=== PATIENT | male | born 1985 | race Caucasian/White ===

== ENCOUNTER 2017-01-12 15:27 | Emergency (ER) | payer SELFPAY ==
--- NOTE | 2017-01-12 15:51 | ED NURSING NOTES ---
Clinical Report - Nurses [facility] [address] [place] [address] 01/12/2017 15:29 Patient: ELIZABETH MITCHELL TRIAGE Triage time 15:37. Acuity: LEVEL 4. Chief Complaint: SKIN LESION and . right buttock abscess 2.5 weeks ago, got larger, pt popped it a couple days ago, was moving, so was busy, today it popped spontaneously and started draining a lot of serous fluid. Alert. --15:42 Dolly Ashton R.N. 15:42 01/12/17. BP: 123/75. HR: 102. RR: 18. O2 saturation: 100%. Temp: 98.7 F. Pain level now: 11/08. --15:44 Dolly Ashton R.N. Weight: 72.5 kg stated. Height/Length: 70 inches Per Patient. BMI: 22.9. --15:40 Dolly Ashton R.N. Medications None. --15:39 Dolly Ashton R.N. Allergies No Known Drug Allergy. --15:39 Dolly Ashton R.N. History Arrived by private vehicle. Historian: patient. Accompanied by father. Primary physician (none). ( Pt arrived at registration desk, bleeding from open wound onto floor, was called to bring pt back right away, brought to room in ED and father left to register pt.). It is described as painful. 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 PAST MEDICAL HX: Immunizations: status is unknown. SOCIAL HX: Heavy tobacco smoker (cigarette)- less than 1 pack per day. No alcohol use or drug use. The patient was not exposed to MRSA. FALL RISK ASSESSMENT: Fall risk assessment completed. No fall risk identified. FUNCTIONAL ASSESSMENT: Functional assessment: no impairments noted. LEARNING NEEDS ASSESSMENT: The learning needs assessment revealed no barriers. --15:42 Dolly Ashton R.N. PROBLEMS: Abscess. --15:39 Dolly Ashton R.N. ADDITIONAL SURGERIES: no known surgeries. Interventions ID band on patient. To room. --15:42 Dolly Ashton R.N. PHYSICAL ASSESSMENT 15:44 01/12/17. GENERAL / NEURO / PSYCH: Alert. Oriented X 4. RESPIRATORY: Respirations not labored. --15:44 Dolly Ashton R.N. NURSING PROGRESS NOTES 15:44 01/12/17. Patient identifiers checked. Call light placed in reach. Bed placed in lowest position. Patient ready for evaluation- chart flagged. --15:44 Dolly Ashton R.N. DISPOSITION / DISCHARGE Departure time: 1610. Condition at departure: improved. ( Vital signs deferred.). No learning barriers present. Discharge instructions provided and reviewed with the patient. Reviewed medication(s) information. Prescription(s) given to the patient. Reviewed wound care and skin care instructions. Reviewed referral to family practice for followup. Verbalized understanding. Written instructions provided. The patient was discharged home and accompanied by parent. He left the Emergency Department ambulatory and via private vehicle. --16:13 Dolly Ashton R.N. Locked/Released at 01/15/2017 9:50 by Dolly Ashton R.N.
--- NOTE | 2017-01-12 15:51 | ED CLINICAL REPORT ---
Clinical Report - Physicians/Mid Levels [facility] [address] [place] [address] 01/12/2017 15:29 Patient: ELIZABETH MITCHELL Time Seen: 15:41; initial patient contact, initial documentation, patient care assumed. Arrived- By private vehicle. Historian- patient. HISTORY OF PRESENT ILLNESS Chief Complaint: LESION. This started about 2 1/2 weeks ago and is still present but is better now. Not itchy, painful or burning. It has been located on the right buttocks. No cause has been identified. (opened it up today, and started draining alot today). Similar symptoms previously: Once, milder. ( had one prior on other buttock, went away with abx, would like abx again now). Recent medical care: Not recently seen/assessed. REVIEW OF SYSTEMS No fever. All systems otherwise negative, except as recorded above. PAST HISTORY See nurses notes. PROBLEMS: Abscess. --15:39 Dolly Ashton R.N. ADDITIONAL SURGERIES: no known surgeries. SOCIAL HISTORY Heavy tobacco smoker. No alcohol use or drug use. No recent travel. Is a local resident. FAMILY HISTORY Negative. ADDITIONAL NOTES The nursing notes have been reviewed with agreement regarding the chief complaint, HPI, ROS, PMH and patient medications and allergies. PHYSICAL EXAM Vital Signs: 01/12/2017 15:42 BP: 123/75. HR: 102. RR: 18. O2 saturation: 100%. Temp: 98.7 F. Pain level now: 2/10. Have been reviewed as abnormal and appear to be correct. Blood pressure normal. Tachycardic. Respiratory rate normal. Temperature normal. Oxygen saturation normal. Appearance: Alert. Oriented X3. No acute distress. Eyes: Pupils equal, round and reactive to light. Conjunctivae and eyelids normal. Neck: Neck supple. Respiratory: No respiratory distress. Skin: Skin warm and dry. Normal skin color. No rash. Normal skin turgor. Single medium abscess with drainage to right buttock (1cm size hole open and draining, clear fluid to blood, no pus seen). No fluctuance, pointing or cellulitis. Extremities: Normal external inspection. Extremities nontender. Neuro: Oriented X 3. No motor deficit. No sensory deficit. PROGRESS AND PROCEDURES Patient counseled in person regarding the patient's stable condition and diagnosis. Differential Diagnosis: Other possible considerations: abscess, acne, cellulitis, substance abuse, insect bite/sting. Above considerations are based on history and physical exam. Differential diagnosis was discussed with patient. Disposition: Discharged home in good and improved condition (15:51). Condition: good and stable. CLINICAL IMPRESSION Single deep abscess (R buttock). INSTRUCTIONS Protect wound and keep wound area clean. Soak in warm soapy water twice daily. Warnings: GENERAL WARNINGS: Return or contact your physician immediately if your condition worsens or changes unexpectedly, if not improving as expected, or if other problems arise. Specifically return if problem worsens. Prescription Medications: Bactrim DS 800 mg / 160 mg: take 1 tablet orally every 12 hours for 10 days. No refill. Follow-up: Follow up with your doctor in about two days for wound check. Call for an appointment. Summary of care provided to patient. Understanding of the discharge instructions verbalized by patient. (Electronically signed by Ileana Brink A.R.N.P. 01/12/2017 19:44) Addenda for ELIZABETH MITCHELL VisitID: [id number] Date: 01/12/2017 01/15/2017 9:50 Dressing placed on wound prior to discharge, applied 4x4's and secured with tape. (Electronically signed by Dolly Ashton R.N. 01/15/2017 9:50)
--- NOTE | 2017-01-12 15:51 | ED NURSING NOTES ---
Clinical Report - Nurses [facility] [address] [place] [address] 01/12/2017 15:29 Patient: ELIZABETH MITCHELL TRIAGE Triage time 15:37. Acuity: LEVEL 4. Chief Complaint: SKIN LESION and . right buttock abscess 2.5 weeks ago, got larger, pt popped it a couple days ago, was moving, so was busy, today it popped spontaneously and started draining a lot of serous fluid. Alert. --15:42 Dolly Ashton R.N. 15:42 01/12/17. BP: 123/75. HR: 102. RR: 18. O2 saturation: 100%. Temp: 98.7 F. Pain level now: 11/08. --15:44 Dolly Ashton R.N. Weight: 72.5 kg stated. Height/Length: 70 inches Per Patient. BMI: 22.9. --15:40 Dolly Ashton R.N. Medications None. --15:39 Dolly Ashton R.N. Allergies No Known Drug Allergy. --15:39 Dolly Ashton R.N. History Arrived by private vehicle. Historian: patient. Accompanied by father. Primary physician (none). ( Pt arrived at registration desk, bleeding from open wound onto floor, was called to bring pt back right away, brought to room in ED and father left to register pt.). It is described as painful. 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 PAST MEDICAL HX: Immunizations: status is unknown. SOCIAL HX: Heavy tobacco smoker (cigarette)- less than 1 pack per day. No alcohol use or drug use. The patient was not exposed to MRSA. FALL RISK ASSESSMENT: Fall risk assessment completed. No fall risk identified. FUNCTIONAL ASSESSMENT: Functional assessment: no impairments noted. LEARNING NEEDS ASSESSMENT: The learning needs assessment revealed no barriers. --15:42 Dolly Ashton R.N. PROBLEMS: Abscess. --15:39 Dolly Ashton R.N. ADDITIONAL SURGERIES: no known surgeries. Interventions ID band on patient. To room. --15:42 Dolly Ashton R.N. PHYSICAL ASSESSMENT 15:44 01/12/17. GENERAL / NEURO / PSYCH: Alert. Oriented X 4. RESPIRATORY: Respirations not labored. --15:44 Dolly Ashton R.N. NURSING PROGRESS NOTES 15:44 01/12/17. Patient identifiers checked. Call light placed in reach. Bed placed in lowest position. Patient ready for evaluation- chart flagged. --15:44 Dolly Ashton R.N. DISPOSITION / DISCHARGE Departure time: 1610. Condition at departure: improved. ( Vital signs deferred.). No learning barriers present. Discharge instructions provided and reviewed with the patient. Reviewed medication(s) information. Prescription(s) given to the patient. Reviewed wound care and skin care instructions. Reviewed referral to family practice for followup. Verbalized understanding. Written instructions provided. The patient was discharged home and accompanied by parent. He left the Emergency Department ambulatory and via private vehicle. --16:13 Dolly Ashton R.N. Locked/Released at 01/15/2017 9:50 by Dolly Ashton R.N.
--- NOTE | 2017-01-12 15:51 | ED CLINICAL REPORT ---
Clinical Report - Physicians/Mid Levels [facility] [address] [place] [address] 01/12/2017 15:29 Patient: ELIZABETH MITCHELL Time Seen: 15:41; initial patient contact, initial documentation, patient care assumed. Arrived- By private vehicle. Historian- patient. HISTORY OF PRESENT ILLNESS Chief Complaint: LESION. This started about 2 1/2 weeks ago and is still present but is better now. Not itchy, painful or burning. It has been located on the right buttocks. No cause has been identified. (opened it up today, and started draining alot today). Similar symptoms previously: Once, milder. ( had one prior on other buttock, went away with abx, would like abx again now). Recent medical care: Not recently seen/assessed. REVIEW OF SYSTEMS No fever. All systems otherwise negative, except as recorded above. PAST HISTORY See nurses notes. PROBLEMS: Abscess. --15:39 Dolly Ashton R.N. ADDITIONAL SURGERIES: no known surgeries. SOCIAL HISTORY Heavy tobacco smoker. No alcohol use or drug use. No recent travel. Is a local resident. FAMILY HISTORY Negative. ADDITIONAL NOTES The nursing notes have been reviewed with agreement regarding the chief complaint, HPI, ROS, PMH and patient medications and allergies. PHYSICAL EXAM Vital Signs: 01/12/2017 15:42 BP: 123/75. HR: 102. RR: 18. O2 saturation: 100%. Temp: 98.7 F. Pain level now: 2/10. Have been reviewed as abnormal and appear to be correct. Blood pressure normal. Tachycardic. Respiratory rate normal. Temperature normal. Oxygen saturation normal. Appearance: Alert. Oriented X3. No acute distress. Eyes: Pupils equal, round and reactive to light. Conjunctivae and eyelids normal. Neck: Neck supple. Respiratory: No respiratory distress. Skin: Skin warm and dry. Normal skin color. No rash. Normal skin turgor. Single medium abscess with drainage to right buttock (1cm size hole open and draining, clear fluid to blood, no pus seen). No fluctuance, pointing or cellulitis. Extremities: Normal external inspection. Extremities nontender. Neuro: Oriented X 3. No motor deficit. No sensory deficit. PROGRESS AND PROCEDURES Patient counseled in person regarding the patient's stable condition and diagnosis. Differential Diagnosis: Other possible considerations: abscess, acne, cellulitis, substance abuse, insect bite/sting. Above considerations are based on history and physical exam. Differential diagnosis was discussed with patient. Disposition: Discharged home in good and improved condition (15:51). Condition: good and stable. CLINICAL IMPRESSION Single deep abscess (R buttock). INSTRUCTIONS Protect wound and keep wound area clean. Soak in warm soapy water twice daily. Warnings: GENERAL WARNINGS: Return or contact your physician immediately if your condition worsens or changes unexpectedly, if not improving as expected, or if other problems arise. Specifically return if problem worsens. Prescription Medications: Bactrim DS 800 mg / 160 mg: take 1 tablet orally every 12 hours for 10 days. No refill. Follow-up: Follow up with your doctor in about two days for wound check. Call for an appointment. Summary of care provided to patient. Understanding of the discharge instructions verbalized by patient. (Electronically signed by Ileana Brink A.R.N.P. 01/12/2017 19:44) Addenda for ELIZABETH MITCHELL VisitID: [id number] Date: 01/12/2017 01/15/2017 9:50 Dressing placed on wound prior to discharge, applied 4x4's and secured with tape. (Electronically signed by Dolly Ashton R.N. 01/15/2017 9:50)
--- NOTE | 2017-01-15 09:51 | ED MED RECONCILIATION SUMMARY ---
Patient: ELIZABETH MITCHELL Medication Reconciliation Report [facility] VisitID: [id number] [address] [place] [address] 31y, M Registration Date/Time: 01/12/2017 Weight: 72.5 kg Height/Length: 70 in. BMI: 22.9 ALLERGIES: No Known Drug Allergy The patient's Home Medications are listed below: NONE. The source(s) of the original Home Medication information: Not obtained. The following Medications were given to the patient in the Emergency Department: None. The following Medications were prescribed to the patient: Bactrim DS 800 mg / 160 mg: take 1 tablet orally every 12 hours for 10 days. No refill. -- Ileana Brink A.R.N.P.
--- NOTE | 2017-01-15 09:51 | ED MAR SUMMARY ---
..... Medication Administration Record [facility] [address] [place], [place] [id number] Patient: ELIZABETH MITCHELL Visit ID: [id number] 31y, M Weight: 72.5 kg Height/Length: 70 in BMI: 22.9 ALLERGIES: No Known Drug Allergy
--- NOTE | 2017-01-15 09:51 | ED DISCHARGE INSTRUCTIONS ---
Patient: ELIZABETH MITCHELL General Instructions [facility] VisitID: [id number] [place] [address] 31y, M Registration Date/Time: 01/12/2017 Single deep abscess (R buttock). INSTRUCTIONS Protect wound and keep wound area clean. Soak in warm soapy water twice daily. Warnings: GENERAL WARNINGS: Return or contact your physician immediately if your condition worsens or changes unexpectedly, if not improving as expected, or if other problems arise. Specifically return if problem worsens. Prescription Medications: Bactrim DS 800 mg / 160 mg: take 1 tablet orally every 12 hours for 10 days. No refill. Follow-up: Follow up with your doctor in about two days for wound check. Call for an appointment. Summary of care provided to patient. Understanding of the discharge instructions verbalized by patient. ADDITIONAL INFORMATION Abscess (Antibiotic Treatment Only) An abscess (sometimes called a boil) occurs when bacteria get trapped under the skin and begin to grow. Pus forms inside the abscess as the body responds to the bacteria. An abscess can occur with an insect bite, ingrown hair, blocked oil gland, pimple, cyst, or puncture wound. In the early stages, redness and tenderness are the only symptoms. Sometimes, this stage can be treated with antibiotics alone. If the abscess does not respond to antibiotic treatment, it will need to be drained with a small cut, under local anesthesia. Home care The following will help you care for your abscess at home: Soak the wound in hot water or apply hot packs (small towel soaked in hot water) to the area for 20 minutes at a time. Do this three to four times a day. Apply antibiotic cream or ointment onto the skin 3-4 times a day, unless something else was prescribed. Some ointments include an antibiotic plus a local pain reliever. If your doctor prescribed antibiotics, do not stop taking this medication until you have finished the prescribed course or the doctor tells you to stop. You may use an [id number] pain medication to control pain, unless another pain medicine was prescribed. If you have chronic liver or kidney disease or ever had a stomach ulcer or GI bleeding, talk with your doctor before using these any of these. Follow-up care Follow up with your health care provider as advised by our staff. Look at your wound each day for the signs of worsening infection listed below. When to seek medical care Get prompt medical attention if any of the following occur: An increase in redness or swelling Red streaks in the skin leading away from the abscess An increase in local pain or swelling Fever of 100.4F (38C) or higher, or as directed by your health care provider Pus or fluid coming from the abscess Cellulitis You have an infection of the skin known as cellulitis. This usually starts with a scrape, cut, insect bite, blister or other opening in the skin which becomes infected. This is a serious condition. It must be watched closely to be sure the infection is not spreading. With antibiotic treatment, the size of the red area will gradually shrink in size until the skin returns to normal. This will take 7-10 days. The red area should never increase in size once the antibiotic medicine has been started. Occasionally, an infection will be resistant to one antibiotic and another one will have to be used. Home Care: 1) Limit the use of the affected part, since excess movement can cause the infection to spread. 2) If the infection is on your leg, walk as little as possible during the first few days of the treatment. Keep your leg elevated while sitting. This will reduce swelling. 3) Take all of the antibiotic medicine exactly as directed until it is gone. Be careful not to miss any doses, especially during the first seven days. Follow Up with your doctor or this facility as directed. Check the infected area daily for the warning signs listed below. Get Prompt Medical Attention if any of the following occur: -- Spreading area of redness -- Increasing swelling or pain -- Appearance of pus or drainage -- Fever over 100.4 F (38.0 C) oral, or over 101.4 F (38.6 C) rectal, after two days on antibiotics Staph Infection (MRSA) "Staph" is the short name for the common bacteria called "staphylococcus aureus". Staph bacteria are often present on the skin without causing an infection. If it gets under the skin an infection occurs. This causes redness, tenderness, swelling and sometimes fluid drainage. MRSA stands for "Methicillin-Resistant Staph Aureus". Unlike a common staph infection, MRSA bacteria are resistant to the usual antibiotics and harder to treat. Also, MRSA is more toxic than common staph bacteria. It can spread quickly throughout the body and cause a life-threatening illness. MRSA is spread to others by direct physical contact with the bacteria. MRSA can also be transmitted from items contaminated by a person who has the bacteria, such as bandages, towels, bed sheets, or sports equipment. It is not spread through the air. Once you have a MRSA skin infection, you are at risk of having it recur in the future. If MRSA infection is suspected, the doctor may take a wound culture to confirm the diagnosis. Any abscess will be drained. One or sometimes two antibiotics that work against MRSA will be prescribed. Home Care: 1) Take any antibiotics prescribed exactly as directed until they are gone. 2) Follow the same washing procedures as outlined for Household Members below. 3) Keep draining wounds covered with clean, dry bandages. Change dressings as they become soiled. 4) You and those in contact with you should wash their hands frequently with soap and warm water or use an alcohol-based hand regional environmental manager. Do this after each time you change the bandage or touch the wound. 5) Avoid sharing personal items such as towels, washcloths, razors, clothing, or uniforms. Wash soiled sheets, towels or clothes in hot water with laundry detergent. Use an automatic clothes dryer set on high to kill any remaining bacteria. 6) Remove any artificial nails and nail chinese. 7) If you use a gym, wipe down equipment before and after each use. Treatment Of Household Members If you have been diagnosed with possible MRSA infection, those living with you are at higher risk of carrying the bacteria on their skin or in their nose, even if there is no sign of infection. Bacteria must be removed from the skin of all household members (including you) at the same time, so that it is not passed back and forth. Advise them to remove the bacteria as follows: Wash your whole body (scalp to toes) daily for five days with Hibiclens (chlorhexidine). Scrub fingernails with a brush for one minute twice a day. If any skin infections are present (boils, abscess, infected cut) these must be treated by a doctor. Washing alone will not treat a MRSA infection. Clean counter tops and children's toys; do not share personal items such as toothbrush and razors. It is okay to share glasses, plates, utensils. If antibiotic ointment was prescribed use it as directed. Follow Up with your doctor or as advised by our staff. If a wound culture was taken, call as directed in two days to obtain the results. If the culture result is positive for MRSA, tell medical personnel in the future that you were treated for this type of infection. Get Prompt Medical Attention if any of the following occur: -- Increasing redness, swelling or pain -- Red streaks in the skin around the wound -- Weakness or dizziness -- New appearance of pus or drainage from the wound -- New fever over 100.4 F (38.0 C) Sulfamethoxazole, Trimethoprim Oral tablet What is this medicine? SULFAMETHOXAZOLE; TRIMETHOPRIM or SMX-TMP (suhl fuh meth OK bc zohl; trye METH oh prim) is a combination of a sulfonamide antibiotic and a second antibiotic, trimethoprim. It is used to treat or prevent certain kinds of bacterial infections. It will not work for colds, flu, or other viral infections. How should I use this medicine? Take this medicine by mouth with a full glass of water. Follow the directions on the prescription label. Take your medicine at regular intervals. Do not take it more often than directed. Do not skip doses or stop your medicine early. Talk to your internal combustion engine subassembler regarding the use of this medicine in children. Special care may be needed. This medicine has been used in children as young as 2 months of age. What side effects may I notice from receiving this medicine? Side effects that you should report to your doctor or health college and career counselor as soon as possible: allergic reactions like skin rash or hives, swelling of the face, lips, or tongue breathing problems fever or chills, sore throat irregular heartbeat, chest pain joint or muscle pain pain or difficulty passing urine red pinpoint spots on skin redness, blistering, peeling or loosening of the skin, including inside the mouth unusual bleeding or bruising unusually weak or tired yellowing of the eyes or skin Side effects that usually do not require medical attention (report to your doctor or health college and career counselor if they continue or are bothersome): diarrhea dizziness headache loss of appetite nausea, vomiting nervousness What may interact with this medicine? Do not take this medicine with any of the following medications: aminobenzoate potassium dofetilide metronidazole This medicine may also interact with the following medications: DAVID inhibitors like benazepril, enalapril, lisinopril, and ramipril cyclosporine digoxin diuretics indomethacin medicines for diabetes methenamine methotrexate phenytoin potassium supplements pyrimethamine sulfinpyrazone tricyclic antidepressants warfarin What if I miss a dose? If you miss a dose, take it as soon as you can. If it is almost time for your next dose, take only that dose. Do not take double or extra doses. Where should I keep my medicine? Keep out of the reach of children. Store at room temperature between 20 to 25 degrees C (68 to 77 degrees F). Protect from light. Throw away any unused medicine after the expiration date. What should I tell my health care provider before I take this medicine? They need to know if you have any of these conditions: anemia asthma being treated with anticonvulsants if you frequently drink alcohol containing drinks kidney disease liver disease low level of folic acid or [id number] dehydrogenase poor nutrition or malabsorption porphyria severe allergies thyroid disorder an unusual or allergic reaction to sulfamethoxazole, trimethoprim, sulfa drugs, other medicines, foods, dyes, or preservatives or trying to get breast-feeding What should I watch for while using this medicine? Tell your doctor or health college and career counselor if your symptoms do not improve. Drink several glasses of water a day to reduce the risk of kidney problems. Do not treat diarrhea with over the counter products. Contact your doctor if you have diarrhea that lasts more than 2 days or if it is severe and watery. This medicine can make you more sensitive to the sun. Keep out of the sun. If you cannot avoid being in the sun, wear protective clothing and use a sunscreen. Do not use sun lamps or tanning beds/booths. You have been given the following additional information: Abscess, Antiobiotic Treatment Only Cellulitis MRSA Skin Infection, Suspected Or Confirmed Sulfamethoxazole, Trimethoprim Oral tablet (Electronically signed by Ileana Brink A.R.N.P. 01/12/2017 19:44)
--- NOTE | 2017-01-15 09:51 | ED MED RECONCILIATION SUMMARY ---
Patient: ELIZABETH MITCHELL Medication Reconciliation Report [facility] VisitID: [id number] [place] [address] 31y, M Registration Date/Time: 01/12/2017 Weight: 72.5 kg Height/Length: 70 in. BMI: 22.9 ALLERGIES: No Known Drug Allergy The patient's Home Medications are listed below: NONE. The source(s) of the original Home Medication information: Not obtained. The following Medications were given to the patient in the Emergency Department: None. The following Medications were prescribed to the patient: Bactrim DS 800 mg / 160 mg: take 1 tablet orally every 12 hours for 10 days. No refill. -- Ileana Brink A.R.N.P.
--- NOTE | 2017-01-15 09:51 | ED MAR SUMMARY ---
..... Medication Administration Record [facility] [address] [place], [place] [id number] Patient: ELIZABETH MITCHELL Visit ID: [id number] 31y, M Weight: 72.5 kg Height/Length: 70 in BMI: 22.9 ALLERGIES: No Known Drug Allergy
== END 2017-01-12 16:10 | disposition home or self-care (01) ==
LOC: ED SRH 15:27
DX: L02.31 Cutaneous abscess of buttock (principal); Z72.0 Tobacco use